=== PATIENT | male | born 1990 | race Caucasian/White ===

== ENCOUNTER → 2019-08-26 16:26 | Outpatient (CLI) | payer OTHER, SELFPAY | PROVIDERS: Referring Provider Otolaryngology Otolaryngology/Facial Plastic Surgery; Visit Provider Otolaryngology Otolaryngology/Facial Plastic Surgery | DX: J32.9 Chronic sinusitis, unspecified (principal) | CPT/HCPCS: 87070; 87205 ==

== ENCOUNTER → 2019-09-06 15:19 | Outpatient (CLI) | payer OTHER, SELFPAY ==
[2017-11-03 21:57] VITALS: BMI 29.0
--- NOTE | 2019-09-06 15:21 | CT_ITS ---
STUDY: CT MAXILLOFACIAL SINUSES REASON FOR EXAM: Male, 28 years old. Sinusitis for 6 years. RADIATION DOSAGE (If Supplied By Facility): CTDIvol = ( 33.45 ) mGy, DLP = ( 843.27 ) mGycm TECHNIQUE: The patient was scanned in a multi detector CT scanner. High resolution axial imaging was performed without the administration of intravenous contrast material. Sagittal and coronal images were reconstructed. Individualized dose optimization techniques were used for this CT. COMPARISON: None. FINDINGS: FRONTAL SINUSES: Mild mucosal thickening involving the frontal sinuses. ETHMOIDAL SINUSES: Diffuse mucosal thickening of the bilateral ethmoidal sinuses with near complete opacification compatible with sinusitis. MAXILLARY SINUSES: There is bilateral mucosal inflammatory disease with chronic pattern involving the bilateral maxillary sinuses. SPHENOIDAL SINUSES: Mild mucosal disease of the sphenoid sinus bilaterally. There is narrowing of the bilateral maxillary infundibuli with suboptimally seen otherwise normal uncinate processes. There is diffuse mucosal thickening involving the nasal mucosa with the enlargement of the ethmoid bullae, and hiatus semilunaris. Enlargement of the bilateral middle turbinates. Enlargement of the bilateral inferior turbinates. Normal midline nasal septum. There is patency of the bilateral nasal airways. The visualized osseous structures are normal. The visualized bilateral orbital contents are normal. CT/Sinus/Facial Bone IMPRESSION: Diffuse sinus mucosal disease as described above. Electronically Signed: Juani Aquino MD at 3:13 EST , Service support ,
== END ==
PROVIDERS: Referring Provider Otolaryngology Otolaryngology/Facial Plastic Surgery; Visit Provider Otolaryngology Otolaryngology/Facial Plastic Surgery
DX: J32.9 Chronic sinusitis, unspecified (principal)
CPT/HCPCS: 70486

== ENCOUNTER → 2019-10-04 17:11 | Outpatient (CLI) | payer OTHER, SELFPAY ==
[2017-11-03 21:57] VITALS: BMI 29.0
== END ==
PROVIDERS: Referring Provider Otolaryngology Otolaryngology/Facial Plastic Surgery; Visit Provider Otolaryngology Otolaryngology/Facial Plastic Surgery
DX: J32.9 Chronic sinusitis, unspecified (principal)
CPT/HCPCS: 87070; 87205

== ENCOUNTER 2019-12-13 09:31 | Day surgery (SDC) | payer OTHER, SELFPAY ==
--- NOTE | 2019-12-13 | NASAL_PTH ---
PATIENT: ALEXYS VILLAR LOC: [facility] [place] U#:[id number] AGE/SX: 28/M ROOM: RE12/13/[address]: Dr. Ko Tatum MD : [id number] BED: DIS: 12/13/2019 SPEC #: [id number] RECD: 12/13/19 13:35 STATUS: AHYDENChente GRUBER #: [id number] ANDRE: 12/13/19 00:[address]: Ko Tatum DEPT: SURGICAL PATHOLOGY RECD BY: Massimo Benites ENTERED: 12/13/19 13:37 SP TYPE: NASAL SPEC OTHR DR: No Primary Care Phys Tissues: A - Ethmoid sinus, NOS B - Ethmoid sinus, NOS Procedures: Surgery Specimen Level IV HEADER OPERATION: Total ethmoidectomy, maxillary antrostomy PRE-OP DIAGNOSIS: Chronic sinusitis TISSUE SUBMITTED: A - Right nasal contents, B - Left nasal contents MICROSCOPIC DIAGNOSIS A. Right nasal contents: Fragments of respiratory mucosa with chronic inflammation and bone. Fragments of benign mucosal polyp (1.3 cm in greatest dimension). B. Left nasal contents: Fragments of respiratory mucosa with chronic inflammation and bone. Benign mucosal polyp (3.7 cm in greatest dimension). ALBER:josé 12/14/19 MICROSCOPIC DESCRIPTION Slides are reviewed. GROSS DESCRIPTION A - Received in fixative is one container labeled with the patient's name and designated right nasal contents. The specimen consists of multiple irregular fragments of wilder-pink soft tissue that in aggregate measure 5 x 3 x 0.3 cm. The entire specimen is submitted in two cassettes. B - Received in fixative is one container labeled with the patient's name and designated left nasal contents. The specimen consists of a piece of wilder-pink polyp measuring 3.7 x 1 x 0.4 cm. Also received in the container are multiple fragments of wilder-pink soft tissue that in aggregate measure 5 x 3 x 0.2 cm. The entire specimen is submitted in three cassettes as follows: 1 - polyp, 2 & 3 - rest of the specimen. / ALBER:josé 12/13/19 TC:3 CPT: 66741 x2
[2019-12-13 10:07] VITALS: BP 144/87; PULSE 78; RESP 14; TEMP 36.9; O2SAT 100; BMI 32.4
[2019-12-13] MEDS: Lactated Ringers 1,000 ML 100 ML IV (10:28)
--- NOTE | 2019-12-13 10:58 | DCINST_ITS ---
You will use the following diet at home:: Regular Discharge Activity: - - No noseblowing Additional Activity Instructions:: Start saline irrigation 4x/day on 12/14/19. Start your antibiotic tonight. Allergies/Adverse Reactions: Allergies No Known Allergies Allergy (Verified 12/09/19 11:37) Medications to take at Discharge Keto Fatburner 3 cap PO DAILY 12/09/19 Prednisone 10 mg PO DAILY 12/09/19 Primary Care Physician: Care Physician,No Primary [Primary Care Provider] - Test Results: Test results from this visit will be discussed in further detail at your follow- up appointment, if applicable.
[2019-12-13] MEDS: Oxymetazoline 0.05% 1 SPRAY SPRAY.BTL 15 SPRAY (11:39)
--- NOTE | 2019-12-13 12:23 | PCM.OPRPT ---
Report of Operation Date of Procedure: 12/13/19 Pre-Operative Diagnosis: chronic sinusitis Post-Operative Diagnosis: same Surgery/Procedure Performed:: Bilateral total ethmoidectomy. Bilateral maxillary antrostomy with tissue removal Description of Surgical Findings:: polyps in all sinuses Type of Anesthesia:: General Anesthesiologist: Kodi Lo Specimen's removed: sinus contents Estimated Blood Loss (mL): minimal Description of Procedure: The patient was taken to the operating room on 12/13/19. The patient was placed in the supine position on the operating table. The patient was given sufficient general endotracheal anesthesia. The head of bed was elevated 30 degrees. The navigation system was placed and verified per protocol and found to be accurate. 0 and 30 degrees rigid nasal endoscopes were used throughout the entire case. The middle turbinate uncinate process and polyps were injected with 1% lidocaine with epinephrine bilaterally. The right middle turbinate was medialized with a [place] elevator. Polyp was removed from the middle meatus using a sinus shaver. A ball-tipped sinus seeker was placed into the patient's maxillary sinus. An antrostomy was created with a back biter. The uncinate process was taken down using a microdebrider. Tissue was removed from the maxillary sinus using a microdebrider with a 30 degree rigid nasal endoscope for visualization. Next, the ethmoid bulla was opened with a small curette. Anterior and posterior ethmoidectomy were then carried out using curette, sinus shaver and 45 degree [place] forceps. Ethmoid cells were verified for relation to the skull base and orbit prior to being entered with the navigation system. I then placed Afrin pledgets into the sinonasal cavity. Next attention was turned to the left side. The middle turbinate was medialized with a [place] elevator. A large polyp was removed from the middle meatus using a sinus shaver. The uncinate process was taken down using a sinus shaver. In doing so, the maxillary antrostomy was created. Tissue was removed from the maxillary sinus using a microdebrider with a 30 degree rigid nasal endoscope for visualization. The ethmoid bulla was opened with a small curette. Anterior posterior ethmoidectomy were then carried out using a sinus shaver curette and [place] forceps. Ethmoid cells were verified for relation to the skull base and orbit prior to being entered with the navigation system. There was a polyp occluding the natural sphenoid ostia. This was removed with a sinus shaver. Hemostasis was then achieved using Afrin pledgets. The pledgets were then removed bilaterally and Talha powder was applied bilaterally for absolute hemostasis. The procedure was then terminated. The patient was then awoken and brought to the recovery room in stable condition blood loss minimal, replacement none. Sponge, needle, instrument count were correct at the end of the procedure.
[2019-12-13 12:39] VITALS: BP 107/86; BP 144/87; PULSE 93; RESP 16; TEMP 36.3; O2SAT 93
[2019-12-13 12:45] VITALS: BP 128/84; BP 144/87; PULSE 87; RESP 16; O2SAT 90
[2019-12-13 13:00] VITALS: BP 135/85; BP 144/87; PULSE 59; RESP 16; O2SAT 100
[2019-12-13 13:15] VITALS: BP 132/84; BP 144/87; PULSE 60; RESP 16; TEMP 36.5; O2SAT 95
[2019-12-13] MEDS: Acetaminophen 325 MG Tablet 650 MG PO (13:41)
[2019-12-13 14:10] VITALS: BP 144/87
== END 2019-12-13 14:12 | disposition home or self-care (01) ==
LOC: SDC 09:32 → AC 09:42
PROVIDERS: Referring Provider Otolaryngology; Visit Provider Otolaryngology
PROC: (CPT 31267; principal; 2019-12-13 11:00)
DX: J32.8 Other chronic sinusitis (principal); J33.8 Other polyp of sinus
CPT/HCPCS: 00160; 31267; 61782; 88305; J7120; J2405